=== PATIENT | male | born 1955 | race Caucasian/White ===

== ENCOUNTER 2021-11-25 06:00 | Day surgery (SDC) | payer OTHER, BC ==
[2021-11-21 19:06] VITALS: BMI 36.3
[2021-11-25] MEDS ORDERED: MIDAZOLAM HCL 2 MG/2 ML SINGLE DOSE VIAL ONE (06:52)
[2021-11-25] MEDS ORDERED: ROPIVACAINE HCL/PF 100 MG/20 ML VIAL ONE (06:52)
[2021-11-25] MEDS ORDERED: EPINEPHrine 1:1,000 1,000 MCG/ML ML ONE (07:31)
[2021-11-25] MEDS ORDERED: PROPOFOL 20 ML ONE ×3 (07:38→09:14)
[2021-11-25] MEDS ORDERED: ONDANSETRON 4 MG/2 ML VIAL ONE (09:17)
[2021-11-25] MEDS ORDERED: ceFAZolin SODIUM 1 GM VIAL ONE ×2 (09:18)
[2021-11-25] MEDS ORDERED: ONDANSETRON 4 MG/2 ML VIAL IVPUSH PRN (11:03)
[2021-11-25] MEDS ORDERED: oxyCODONE HCL 5 MG TABLET PO PRN ×2 (11:03)
[2021-11-25] MEDS ORDERED: LACTATED RINGERS SOLUTION 1,000 ML IV SCH (11:15)
[2021-11-25 11:47] VITALS: TEMP 98.3
[2021-11-25 11:50] VITALS: BP 107/73; PULSE 80
== END 2021-11-25 11:25 | disposition home or self-care (01) ==
LOC: FASU 06:00
PROVIDERS: ATTEND Orthopaedic Surgery
PROC: 0RNJ4ZZ Release Right Shoulder Joint, Percutaneous Endoscopic Approach (ICD-10-PCS; 2021-11-25)
PROC: 0RBJ4ZZ Excision of Right Shoulder Joint, Percutaneous Endoscopic Approach (ICD-10-PCS; 2021-11-25)
PROC: 0LT Tendons, Resection (ICD-10-PCS; 2021-11-25)
PROC: 0PB94ZZ Excision of Right Clavicle, Percutaneous Endoscopic Approach (ICD-10-PCS; principal; 2021-11-25 08:40)
DX: M75.01 Adhesive capsulitis of right shoulder (principal); M75.41 Impingement syndrome of right shoulder; M19.011 Primary osteoarthritis, right shoulder; S43.431A Superior glenoid labrum lesion of right shoulder, initial encounter; X58.XXXA Exposure to other specified factors, initial encounter; Y93.9 Activity, unspecified; Y92.9 Unspecified place or not applicable; M65.811 Other synovitis and tenosynovitis, right shoulder; M66.811 Spontaneous rupture of other tendons, right shoulder
CPT/HCPCS: 82962; 94760